=== PATIENT | female | born 1995 | race Caucasian/White ===

== ENCOUNTER → 2017-01-16 11:45 | Emergency (ER) | payer BC ==
--- NOTE | 2017-01-16 14:25 | UC ---
Throat Pain/Nasal To HPI - HPI Summary HPI Summary: 21 female presents to with complaints of sore throat, nasal congestion and body aches since waking up this morning. Also states she has been experiencing nausea and fatigue for the past couple of weeks. Nausea has resolved however is still feeling fatigued. Took ibuprofen this morning without much relief. No other medications. Denies vomiting and abdominal pain. NO chest pain or trouble breathing. Admits to myalgias. No known sick contacts other than her roommate diagnosed with bronchitis last week. Patient states she has been coughing minimally to none. No other complaints. No other medications. No PMHx. - History of Current Complaint Stated Complaint: SORE THROAT,CONGESTION Time Seen by Provider: 01/16/17 13:10 Hx Obtained From: Patient Onset/Duration: Sudden Onset, Lasting Days, Still Present, Worse Since Pain Intensity: 5 Pain Scale Used: 0-10 Numeric Cough: Nonproductive - intermittent Associated Signs & Symptoms: Positive: Dysphagia, Nasal Discharge PMH/Surg Hx/FS Hx/Imm Hx - Additional Past Medical History Additional PMH: Denies DM, HTN and asthma - Surgical History Surgical History: None - Family History Known Family History: Positive: None - Social History Occupation: Student Alcohol Use: Occasionally Substance Use Type: None Smoking Status (MU): Never Smoked Tobacco Review of Systems Constitutional: Fatigue ENT: Sore Throat, Nasal Discharge Respiratory: Cough - intermittent, minmal Cardiovascular: Negative Gastrointestinal: Nausea - resolved Musculoskeletal: Myalgia Neurological: Headache All Other Systems Reviewed And Are Negative: Yes Physical Exam Triage Information Reviewed: Yes Appearance: Well-Appearing, No Pain Distress, Well-Nourished Vital Signs: BP: 123/73 Temp: 98.9 HR:79 O2: 99 Resp: 16 Vital Signs Reviewed: Yes Eyes: Positive: Conjunctiva Clear ENT: Positive: Normal ENT inspection, Hearing grossly normal, Pharyngeal erythema, Nasal congestion, TMs normal, Tonsillar swelling. Negative: Nasal drainage, TM bulging, TM dull, TM red, Tonsillar exudate, Hoarse voice, Dental tenderness, Sinus tenderness Dental: Negative: Cervical Lymphadenopathy Neck: Positive: Supple, Nontender, No Lymphadenopathy Respiratory: Positive: Chest non-tender, Lungs clear, Normal breath sounds, No respiratory distress, No accessory muscle use. Negative: Crackles, Rhonchi, Stridor, Wheezing Cardiovascular: Positive: RRR, No Murmur, Pulses Normal, Brisk Capillary Refill Abdomen Description: Positive: Nontender, No Organomegaly, Soft. Negative: CVA Tenderness (R), CVA Tenderness (L), Distended, Guarding, Splenomegaly Bowel Sounds: Positive: Present Musculoskeletal: Positive: Strength Intact, ROM Intact, No Edema Neurological: Positive: Alert Skin Exam: Normal Throat Pain/Nasal Course/Dx - Course Course Of Treatment: rapid strep obtained and negative. monspot obtained, pending results. appears patient is suffering from a pharyngitis/URI. symptomatic treatment. aware of worsening signs and symptoms. no concern for any other emergent etiology at this time. follow up. fluids, rest. - Differential Dx/Diagnosis Differential Diagnosis/HQI/PQRI: Mononucleosis, Otitis Media, Pharyngitis, Tonsillitis, URI Provider Diagnoses: pharyngitis, URI Discharge - Discharge Plan Condition: Stable Disposition: HOME Prescriptions: Fluticasone NASAL SPRAY 50MCG* [Flonase NASAL SPRAY 50MCG*] 2 spray BOTH NARES DAILY #1 btl Patient Education Materials: Pharyngitis (ED), Upper Respiratory Infection (ED) Forms: *School Release Additional Instructions: Use prescribed nasal spray at bedtime to help with nasal congestion. Increase fluid intake, and get plenty of rest. Ibuprofen as needed for discomfort and body aches. Chloraspetic sold over the counter to help with sore throat. Gargle with salt water. Follow up with PCP. Any new or worsening symptoms please seek medical attention, as discussed. You will hear about mono results tomorrow, once received.
[2017-01-16 18:25] LABS: EBV Response YES
[2017-01-16 19:49] LABS: Mono Internal Control QC Line Present
[2017-01-16 19:50] LABS: Manual Entry Verification MER0007
[2017-01-18 16:09] LABS: EBV Capsid Ag IgG Ab Positive (Negative); EBV Capsid Ag IgM Ab Negative (Negative)
== END | disposition home or self-care (01) ==
LOC: UCCORT 11:45
DX: J02.9 Acute pharyngitis, unspecified (principal); R53.83 Other fatigue
CPT/HCPCS: 36415; 86308; 86664; 86665; 87651; 99202; G0463